=== PATIENT | female | born 1970 | race Caucasian/White ===

== ENCOUNTER 2023-07-16 17:41 | Emergency (ER) | payer OTHER, SELFPAY ==
[2023-07-16 17:42] VITALS: BP 154/101; PULSE 102; RESP 20; TEMP 36.6; O2SAT 95; BMI 36.9
--- NOTE | 2023-07-16 17:42 | XRR_ITS ---
PROCEDURE INFORMATION: Exam: XR Chest Exam date and time: 07/16/2023 5:52 PM Age: 52 years old Clinical indication: Pain; Chest pressure; Additional info: Cp TECHNIQUE: Imaging protocol: Radiologic exam of the chest. Views: 1 view. COMPARISON: No relevant prior studies available. FINDINGS: Lungs: Unremarkable. No consolidation. Pleural spaces: Unremarkable. No pleural effusion. No pneumothorax. Heart/Mediastinum: Unremarkable. No cardiomegaly. Bones/joints: Unremarkable. XR/XR chest 1V portable [id number] IMPRESSION: No acute findings.
--- NOTE | 2023-07-16 17:42 | ECG_ITS ---
[facility] Test Date: 2023-07-16 Pat Name: Claudette Womack Department: Room: Gender: Female Supervisor Grounds: : 1970 Requested By: Vandana Judge Order Number: [id number] Deep MD: Florentin Ibanez M.D. Measurements Intervals [place] Rate: 98 P: 48 IA: 148 QRS: -46 QRSD: 77 T: 52 QT: 320 QTc: 410 Interpretive Statements SINUS RHYTHM LEFT AXIS DEVIATION [QRS AXIS < -30] LOW QRS VOLTAGE IN PRECORDIAL LEADS [QRS DEFLECTION < 1.0 mV IN CHEST LEADS] PATTERN CONSISTENT WITH PULMONARY DISEASE POSSIBLE RIGHT VENTRICULAR CONDUCTION DELAY [RSR (QR) IN V1/V2] No previous ECG available for comparison Electronically Signed On 07-16-2023 23:08:28 CDT by Florentin Ibanez M.D. [email or web address] ([email or web address] by [employer] in 2014)/store/[id number] f
[2023-07-16 18:16] LABS: Basophils # 0.1 10^3/uL (0.0-0.1); Basophils % 1.1 %; Eosinophils # 0.4 10^3/uL (0.0-0.8); Eosinophils % 4.3 %; Hematocrit 50.2 % (36-47); Lymphocytes # 3.3 10^3/uL (0.8-4.8); Lymphocytes % 36.1 %; Mean Corpuscular HGB Conc 31.9 g/dL (30-55); Mean Corpuscular Hemoglobin 30.8 pg (27-33); Mean Corpuscular Volume 96.7 fl (85-98); Mean Platelet Volume 10.4 fL (7.4-10.4); Monocytes # 0.6 10^3/uL (0.2-0.9); Monocytes % 6.6 %; Neutrophils # 4.74 10^3/uL (1.8-7.7); Neutrophils % 51.6 %; Nucleated Red Blood Cells % 0 %; Platelet Count 250 10^3/cmm (157-399); Red Blood Count 5.19 10^6/uL (3.85-5.65); Red Cell Distribution Width 12.6 % (12.1-15.1)
[2023-07-16 18:38] LABS: Troponin(5th) Baseline < 6 ng/L (0-10)
[2023-07-16 18:55] LABS: Alanine Aminotransferase 34 U/L (0-33); Albumin Level 4.5 g/dL (3.5-5.2); Alkaline Phosphatase 117 U/L (35-105); Aspartate Amino Transferase 31 U/L (0-32); Blood Urea Nitrogen 19 mg/dL (6-20); Calcium 9.5 mg/dL (8.5-10.5); Carbon Dioxide 25 mmol/L (22-29); Chloride 103 mmol/L (98-107); Globulin 2.5 g/dL (1.3-4.6); Glucose 108 mg/dL (65-115); Lipase 36 U/L (13-60); Osmolality Calculated 295 mOsm/kg (285-295); Sodium 141 mmol/L (136-145); Total Bilirubin 0.2 mg/dL (0.15-1.2)
[2023-07-16 19:00] LABS: Anion Gap 17.6 (5-19); Potassium 4.6 mmol/L (3.5-5.1)
--- NOTE | 2023-07-16 19:15 | ED_ITS ---
HPI - Chest Pain General: Chief Complaint: Chest Pain Stated Complaint: chest pain Time Seen by Provider: 07/16/23 18:08 Source: patient Mode of arrival: ambulatory Limitations: no limitations History of Present Illness: 52-year-old female states she been having intermittent chest pains over the last 3 days states its been a pain that goes up and down her chest states seems to be worse with movement denies any vomiting she denies any shortness of breath denies any nausea or diaphoresis did have a history of a stent placed back in 2017. Associated symptoms: Deny abdominal pain, dyspnea, fever(s), nausea or vomiting Review of Systems Const: Denies: fever(s) or chills ENMT: Denies: throat pain or dental pain Card: Reports: chest pain Resp: Denies: dyspnea GI: Denies: abdominal pain, nausea, vomiting or diarrhea Musc: Denies: neck pain or back pain Skin/Breast: Denies: rash Neuro: Denies: headache(s) Physical Exam Const: COMMON NORMALS: no acute distress, patient oriented x3 and healthy appearing HENMT: COMMON NORMALS: normocephalic and atraumatic HEAD & SCALP: normocephalic and atraumatic Eye: COMMON NORMALS: Equal, round and reactive pupils present and EOMs intact bilaterally PUPIL: Yes Equal, round and reactive pupils present Neck/C-Spine: COMMON NORMALS: full ROM and supple Chest: COMMONS NORMALS: normal inspection of the chest and normal palpation of entire chest wall Resp: COMMON NORMALS: normal respiratory effort, No retractions, No use of accessory muscles and clear to auscultation bilaterally AUSCULTATION: clear to auscultation bilaterally Cardio: COMMON NORMALS: regular rate, regular rhythm and No murmurs present (Cardio) RATE: regular rate RHYTHM: regular rhythm GI: COMMON NORMALS: Normal to inspection, nondistended, normoactive bowel sounds present, Soft to palpation, non-tender and no masses PALPATION: Yes Soft to palpation Extremity: COMMON NORMALS: normal to inspection and full ROM Neuro: COMMON NORMALS: patient oriented x3, moves all extremities and no focal motor deficits Psych: COMMON NORMALS: mental status grossly normal, Normal thought process present and cooperative THOUGHT PROCESS: Normal thought process present Skin: COMMON NORMALS: no rashes or lesions noted and no wounds GENERAL SKIN EXAM: no rashes or lesions noted Course Vital Signs: Vital signs: Vital Signs Temperature 97.9 F 07/16/23 17:42 Pulse Rate 93 07/16/23 20:54 Respiratory Rate 16 07/16/23 20:54 Blood Pressure 134/86 07/16/23 20:54 Pulse Oximetry 95 07/16/23 20:54 Oxygen Delivery Me thod Room Air 07/16/23 19:17 MDM - Chest Pain Medical Decision Making Patient presents for chest pains atypical in nature initial and repeat troponin here are both negative EKGs are normal she is stable for discharge she had some nausea we will prescribe her Zofran we will get her follow-up with cardiology she is return if worsening. Medical Records I reviewed the patient's medical records. Lab Data I reviewed the patient's lab results. 07/16/23 18:11 07/16/23 18:11 Radiology Impressions Chest X-Ray 07/16/23 17:42 IMPRESSION: No acute findings. Laboratory Results WBC 9.20 10^3/uL (3.29-11.43) 07/16/23 18:11 RBC 5.19 10^6/uL (3.85-5.65) 07/16/23 18:11 Hgb 16.00 g/dL (11.27-16.99) 07/16/23 18:11 Hct 50.2 % (36-47) H 07/16/23 18:11 MCV 96.7 fl (85-98) 07/16/23 18:11 MCH 30.8 pg (27-33) 07/16/23 18:11 MCHC 31.9 g/dL (30-55) 07/16/23 18:11 RDW 12.6 % (12.1-15.1) 07/16/23 18:11 Plt Count 250 10^3/cmm (157-399) 07/16/23 18:11 MPV 10.4 fL (7.4-10.4) 07/16/23 18:11 Neut % (Auto) 51.6 % 07/16/23 18:11 Lymph % (Auto) 36.1 % 07/16/23 18:11 S[place]ent % (Auto) 6.6 % 07/16/23 18:11 Eos % (Auto) 4.3 % 07/16/23 18:11 Baso % (Auto) 1.1 % 07/16/23 18:11 Neut # (Auto) 4.74 10^3/uL (1.8-7.7) 07/16/23 18:11 Lymph # (Auto) 3.3 10^3/uL (0.8-4.8) 07/16/23 18:11 [place]ent # (Auto) 0.6 10^3/uL (0.2-0.9) 07/16/23 18:11 Eos # (Auto) 0.4 10^3/uL (0.0-0.8) 07/16/23 18:11 Baso # (Auto) 0.1 10^3/uL (0.0-0.1) 07/16/23 18:11 Nucleated RBC % (auto) 0 % 07/16/23 18:11 Nucleated RBCs # 0.0 /100WBC 07/16/23 18:11 Sodium 141 mmol/L (136-145) 07/16/23 18:11 Potassium 4.6 mmol/L (3.5-5.1) 07/16/23 18:11 Chloride 103 mmol/L (98-107) 07/16/23 18:11 Carbon Dioxide 25 mmol/L (22-29) 07/16/23 18:11 Anion Gap 17.6 (5-19) 07/16/23 18:11 BUN 19 mg/dL (6-20) 07/16/23 18:11 Creatinine 0.9 mg/dL (0.5-0.9) 07/16/23 18:11 GFR Calculation 66.0 mL/min (90-130) L 07/16/23 18:11 Glucose 108 mg/dL (65-115) 07/16/23 18:11 Calculated Osmolality 295 mOsm/kg (285-295) 07/16/23 18:11 Calcium 9.5 mg/dL (8.5-10.5) 07/16/23 18:11 Total Bilirubin 0.2 mg/dL (0.15-1.2) 07/16/23 18:11 AST 31 U/L (0-32) 07/16/23 18:11 ALT 34 U/L (0-33) H 07/16/23 18:11 Alkaline Phosphatase 117 U/L (35-105) H 07/16/23 18:11 Troponin T Baseline < 6 ng/L (0-10) 07/16/23 18:11 Troponin T 120 Minute 6.0 ng/L (0-10) 07/16/23 19:59 Delta Troponin T 0.84041 ABS# (0-10) 07/16/23 19:59 Total Protein 7.0 g/dL (6.6-8.7) 07/16/23 18:11 Albumin 4.5 g/dL (3.5-5.2) 07/16/23 18:11 Globulin 2.5 g/dL (1.3-4.6) 07/16/23 18:11 Lipase 36 U/L (13-60) 07/16/23 18:11 All radiology interpretation(s) finalized by discharge EKG Data EKG 1: I personally reviewed and interpreted this EKG as follows: EKG interpretation date: 07/16/23 EKG interpretation time: 17:47 Interpretation: nsr hr [address] or t wave abnormalities qrs 77 qtc 376 Discharge Plan Discharge Patient Disposition: Home Clinical Impression: Chest pain Condition: Stable Prescriptions: New ondansetron 4 mg tablet,disintegrating 4 mg PO Q6H PRN (Reason: nausea and vomiting) Qty: 14 0RF Discharge Orders: Discharge ED (Routine); Ordered 07/16/23 Ordered By: Vandana Judge Referrals: Stefan Nicholas MD [Physician] - 1-3 days Discharge Diet: Advance as tolerated Discharge Activity: Resume usual activity Patient Instructions: Chest Pain (ED) Coding Level of Care Code ED Gas Usage Meter Clerk for Chg Katina
[2023-07-16 19:17] VITALS: BP 146/87; PULSE 88; RESP 16; O2SAT 94; O2SAT 95
[2023-07-16] MEDS: aspirin 81 mg Chew Tablet 324 MG PO (19:24)
--- NOTE | 2023-07-16 19:53 | ECG_ITS ---
[facility] Test Date: 2023-07-16 Pat Name: Claudette Womack Department: Room: Gender: Female Manager Supplier: : 1970 Requested By: Vandana Judge Order Number: [id number] Deep MD: Florentin Ibanez M.D. Measurements Intervals [place] Rate: 78 P: 33 NV: 148 QRS: -37 QRSD: 92 T: 53 QT: 374 QTc: 427 Interpretive Statements SINUS RHYTHM WITH SINUS ARRHYTHMIA LEFT AXIS DEVIATION [QRS AXIS < -30] LOW QRS VOLTAGE IN PRECORDIAL LEADS [QRS DEFLECTION < 1.0 mV IN CHEST LEADS] PATTERN CONSISTENT WITH PULMONARY DISEASE INCOMPLETE RIGHT BUNDLE BRANCH BLOCK [90+ ms QRS DURATION, TERMINAL R IN V1/V2, 40+ ms S IN I/aVL/V4/V5/V6] No previous ECG available for comparison Electronically Signed On 07-16-2023 23:09:22 CDT by Florentin Ibanez M.D. [email or web address] [email or web address].Rebel Monkey/store/OM/[id number]
[2023-07-16 20:20] VITALS: BP 123/91; PULSE 85; RESP 20; O2SAT 95
[2023-07-16 20:30] LABS: Troponin 5 2HR Delta 0.00001 ABS# (0-10)
[2023-07-16] MEDS: HYDROcodone-acetaminophen 5-325 mg Tablet 1 TAB PO (20:48)
[2023-07-16 20:54] VITALS: BP 134/86; PULSE 93; RESP 16; O2SAT 95
--- NOTE | 2023-07-17 08:14 | PC.SOCIAL ---
Cardiology Referral Referral to clinic at this time. Clinic to contact patient with appt date/time.
== END 2023-07-16 20:55 | disposition home or self-care (01) ==
PROVIDERS: Emergency Provider Emergency Medicine
DX: R07.9 Chest pain, unspecified (principal)
CPT/HCPCS: 36415; 71045; 80053; 83690; 84484; 85025; 93005; 99285

== ENCOUNTER 2023-07-27 16:46 | Emergency (ER) | payer OTHER, SELFPAY ==
--- NOTE | 2023-07-27 16:52 | ECG_ITS ---
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 Measurements Intervals [place] Rate: 118 P: 7 WY: 116 QRS: -50 QRSD: 84 T: 44 QT: 305 QTc: 429 Interpretive Statements SINUS TACHYCARDIA WITH SHORT WY INTERVAL PATTERN CONSISTENT WITH PULMONARY DISEASE POSSIBLE RIGHT VENTRICULAR CONDUCTION DELAY [RSR (QR) IN V1/V2] LEFT ANTERIOR FASCICULAR BLOCK [QRS AXIS <= -45, QR IN I, RS IN II] Compared to ECG 07/16/2023 19:53:02 Short [place] interval now present Left anterior fascicular block now present Sinus rhythm no longer present Sinus arrhythmia no longer present Left-axis deviation no longer present Incomplete right bundle-branch block no longer present Electronically Signed On 07-28-2023 6:04:53 CDT by Latasha Hodges M.D. [id number]
[2023-07-27 16:53] VITALS: BP 156/105; PULSE 112; RESP 18; TEMP 36.9; O2SAT 94; BMI 34.9
--- NOTE | 2023-07-27 17:24 | XRR_ITS ---
PROCEDURE INFORMATION: Exam: XR Chest Exam date and time: 07/27/2023 8:58 PM Age: 52 years old Clinical indication: Chest pressure; Prior surgery; Surgery date: 6+ months; Patient HX: Chest pain; HX mi & cardiac stents; Smoker TECHNIQUE: Imaging protocol: Radiologic exam of the chest. Views: 1 view. COMPARISON: CR (CHEST, ) 07/16/2023 5:52 PM FINDINGS: Lungs: Unremarkable. No consolidation. Pleural spaces: Unremarkable. No pleural effusion. No pneumothorax. Heart/Mediastinum: Unremarkable. No cardiomegaly. Bones/joints: Unremarkable. XR/XR chest 1V portable [id number] IMPRESSION: No acute findings.
[2023-07-27 17:47] LABS: Basophils # 0.1 10^3/uL (0.0-0.1); Basophils % 0.9 %; Eosinophils # 0.4 10^3/uL (0.0-0.8); Eosinophils % 3.5 %; Lymphocytes # 3.8 10^3/uL (0.8-4.8); Lymphocytes % 32.4 %; Mean Corpuscular HGB Conc 32.9 g/dL (30-55); Mean Corpuscular Hemoglobin 30.7 pg (27-33); Mean Corpuscular Volume 93.4 fl (85-98); Mean Platelet Volume 9.6 fL (7.4-10.4); Monocytes # 0.8 10^3/uL (0.2-0.9); Monocytes % 6.4 %; Neutrophils # 6.59 10^3/uL (1.8-7.7); Neutrophils % 56.5 %; Nucleated Red Blood Cells % 0 %; Platelet Count 266 10^3/cmm (157-399); Red Blood Count 5.14 10^6/uL (3.85-5.65); Red Cell Distribution Width 12.7 % (12.1-15.1); White Blood Count 11.67 10^3/uL (3.29-11.43)
[2023-07-27 18:10] LABS: Troponin(5th) Baseline < 6 ng/L (0-10)
[2023-07-27 18:16] LABS: Alanine Aminotransferase 23 U/L (0-33); Albumin Level 4.4 g/dL (3.5-5.2); Alkaline Phosphatase 121 U/L (35-105); Aspartate Amino Transferase 20 U/L (0-32); Blood Urea Nitrogen 15 mg/dL (6-20); Calcium 9.7 mg/dL (8.5-10.5); Carbon Dioxide 25 mmol/L (22-29); Chloride 101 mmol/L (98-107); Globulin 2.8 g/dL (1.3-4.6); Glucose 114 mg/dL (65-115); Osmolality Calculated 286 mOsm/kg (285-295); Sodium 137 mmol/L (136-145); Total Bilirubin 0.2 mg/dL (0.15-1.2); Total Protein 7.2 g/dL (6.6-8.7)
[2023-07-27 18:17] LABS: Anion Gap 15.8 (5-19); Potassium 4.8 mmol/L (3.5-5.1)
[2023-07-27 20:40] LABS: Troponin 5 2HR < 6.0 ng/L (0-10); Troponin 5 2HR Delta 0 ABS# (0-10)
[2023-07-27 21:03] VITALS: BP 129/87; PULSE 118; RESP 18; O2SAT 96
--- NOTE | 2023-07-27 21:03 | ECG_ITS ---
[facility] Test Date: 2023-07-27 Pat Name: Claudette Womack Department: Room: Gender: Female Environmental Compliance Manager: : 1970 Requested By: Shaun Garcia Order Number: [id number] Deep MD: Latasha Hodges M.D. Measurements Intervals [place] Rate: 116 P: 69 CO: 137 QRS: 20 QRSD: 76 T: 53 QT: 306 QTc: 426 Interpretive Statements SINUS TACHYCARDIA POSSIBLE LEFT ATRIAL ENLARGEMENT [-0.1mV P-WAVE IN V1/V2] INDETERMINATE AXIS POSSIBLE RIGHT VENTRICULAR CONDUCTION DELAY [RSR (QR) IN V1/V2] ABNORMAL RHYTHM ECG Compared to ECG 07/27/2023 16:52:16 Indeterminate axis now present Short [place] interval no longer present Left anterior fascicular block no longer present Electronically Signed On 07-29-2023 10:51:30 CDT by Latasha Hodges M.D. [email or web address] [email or web address]/[id number]
[2023-07-27 22:22] VITALS: BP 141/92; PULSE 106; RESP 16; O2SAT 96
--- NOTE | 2023-07-27 22:34 | PC.NURSE ---
Upon repeat ekg and vitals done at 2102 when pt was asked about pain; the only pain the pt endorsed was a headache.
[2023-07-27 22:47] LABS: D Dimer 0.45 ug/mLFEU (0-0.59)
[2023-07-27 22:55] VITALS: RESP 18
[2023-07-27] MEDS: fentaNYL 50 mcg/mL INJ 2mL IVP (22:55)
[2023-07-27] MEDS: ondansetron 2 mg/ML SDV 2 mL 4 MG IVP (22:55)
[2023-07-27] MEDS: ketorolac 30 mg/mL INJ IVP (22:56)
[2023-07-27 22:59] VITALS: BP 150/89; PULSE 98; RESP 25; O2SAT 98
--- NOTE | 2023-07-27 23:43 | ECG_ITS ---
[facility] Test Date: 2023-07-27 Pat Name: Claudette Womack Department: Room: Gender: Female Interactive Media Designer: : 1970 Requested By: Shaun Garcia Order Number: [id number] Deep MD: Latasha Hodges M.D. Measurements Intervals [place] Rate: 80 P: 59 [place]: 150 QRS: -28 QRSD: 92 T: 54 QT: 366 QTc: 425 Interpretive Statements SINUS RHYTHM INCOMPLETE RIGHT BUNDLE BRANCH BLOCK [90+ ms QRS DURATION, TERMINAL R IN V1/V2, 40+ ms S IN I/aVL/V4/V5/V6] SEPTAL MYOCARDIAL INFARCTION , OF INDETERMINATE AGE [40+ ms Q WAVE IN V1/V2] Compared to ECG 07/27/2023 21:03:09 Incomplete right bundle-branch block now present Myocardial infarct finding now present Sinus tachycardia no longer present Indeterminate axis no longer present Electronically Signed On 07-29-2023 10:50:37 CDT by Latasha Hodges M.D. [email or web address] Power.[place] [facility] Learningm[facility].Vital Access/store/[id number]
--- NOTE | 2023-07-27 23:58 | W.ED.CHESTPA ---
HPI - Chest Pain General: Chief Complaint: Chest Pain Stated Complaint: Chest pain SOB Time Seen by Provider: 07/27/23 22:06 History of Present Illness: 52-year-old female with a history of coronary disease. She had a stent placed in 2017. She presents here with chest discomfort on and off. She describes it as a squeezing sensation in her left upper chest near her shoulder, with radiation into her arm. She is also been short of breath and fatigued the last couple of days. She has a headache today. Blood pressures have been high, particularly diastolic blood pressures. She usually does not have problems with high blood pressure. Her blood pressure is improved currently after treatment of her pain. Blood pressure now is 119/79 with a heart rate of 88. She notes her heart rate is usually fast. She saw cardiology recently, with similar complaints, and has a scheduled stress test for Saturday. Associated symptoms: Reports dyspnea, nausea and palpitations; Deny abdominal pain, fever(s) or vomiting Review of Systems Const: Denies: fever(s) Card: Reports: chest pain and palpitations Resp: Reports: dyspnea; Denies: productive cough or non-productive cough GI: Reports: nausea; Denies: abdominal pain or vomiting Neuro: Reports: headache(s) Psych: Reports: anxiety PFSH ED PFSH: Medical History CAD (coronary artery disease) Physical Exam Const: COMMON NORMALS: no acute distress GENERAL APPEARANCE: cooperative; not ill appearing and not frail appearing HENMT: COMMON NORMALS: normocephalic, atraumatic and Normal external nose present HEAD & SCALP: normocephalic and atraumatic FACE & SINUS: normal facial exam and face symmetric NOSE: Normal external nose present Eye: COMMON NORMALS: Equal, round and reactive pupils present and EOMs intact bilaterally PUPIL: Yes Equal, round and reactive pupils present Neck/C-Spine: GENERAL: Yes trachea midline Chest: CHEST: Yes Symmetrical chest wall rise Resp: COMMON NORMALS: normal respiratory effort, No retractions, No use of accessory muscles and clear to auscultation bilaterally AUSCULTATION: clear to auscultation bilaterally Cardio: COMMON NORMALS: regular rate and regular rhythm RATE: regular rate RHYTHM: regular rhythm GI: COMMON NORMALS: Normal to inspection, nondistended, normoactive bowel sounds present Extremity: COMMON NORMALS: no pedal edema Neuro: WILFREDO COMA SCALE: document GCS findings Wilfredo coma scale eye opening: Spontaneous Wilfredo coma scale verbal response: Orientated [place] coma scale motor response: Obey commands Wilfredo coma scale total score: 15 SENSORY EXAM: Yes extremities (intact) Psych: COMMON NORMALS: speech normal SPEECH: Yes normal speech Skin: COMMON NORMALS: no rashes or lesions noted GENERAL SKIN EXAM: no rashes or lesions noted Course Vital Signs: Vital signs: Vital Signs Temperature 98.4 F 07/27/23 16:53 Pulse Rate 70 07/28/23 00:16 Respiratory Rate 25 H 07/27/23 22:59 Blood Pressure 124/85 07/28/23 00:16 Pulse Oximetry 98 07/28/23 00:16 Oxygen Delivery Me thod Room Air 07/27/23 22:59 MDM - Chest Pain Medical Decision Making This patient has a stress test scheduled as an outpatient 48 hours. She is symptom-free now after medication. Her white blood cell count is 11.6. BMP is normal. Chest x-ray is normal. She has 2 nondetectable troponins. She has a normal D-dimer. Other laboratory is not remarkable. With control of her blood pressure currently, she will be prescribed as needed blood pressure Medication, allowed to have her stress test on Saturday as an outpatient, and follow-up with cardiology. She will continue to monitor blood pressures. Lab Data 07/27/23 17:38 07/27/23 17:38 Radiology Impressions Chest X-Ray 07/27/23 17:24 IMPRESSION: No acute findings. Laboratory Results WBC 11.67 10^3/uL (3.29-11.43) H 07/27/23 17:38 RBC 5.14 10^6/uL (3.85-5.65) 07/27/23 17:38 Hgb 15.80 g/dL (11.27-16.99) 07/27/23 17:38 Hct 48.0 % (36-47) H 07/27/23 17:38 MCV 93.4 fl (85-98) 07/27/23 17:38 MCH 30.7 pg (27-33) 07/27/23 17:38 MCHC 32.9 g/dL (30-55) 07/27/23 17:38 RDW 12.7 % (12.1-15.1) 07/27/23 17:38 Plt Count 266 10^3/cmm (157-399) 07/27/23 17:38 MPV 9.6 fL (7.4-10.4) 07/27/23 17:38 Neut % (Auto) 56.5 % 07/27/23 17:38 Lymph % (Auto) 32.4 % 07/27/23 17:38 [place] % (Auto) 6.4 % 07/27/23 17:38 Eos % (Auto) 3.5 % 07/27/23 17:38 Baso % (Auto) 0.9 % 07/27/23 17:38 Neut # (Auto) 6.59 10^3/uL (1.8-7.7) 07/27/23 17:38 Lymph # (Auto) 3.8 10^3/uL (0.8-4.8) 07/27/23 17:38 [place] # (Auto) 0.8 10^3/uL (0.2-0.9) 07/27/23 17:38 Eos # (Auto) 0.4 10^3/uL (0.0-0.8) 07/27/23 17:38 Baso # (Auto) 0.1 10^3/uL (0.0-0.1) 07/27/23 17:38 Nucleated RBC % (auto) 0 % 07/27/23 17:38 Nucleated RBCs # 0.0 /100WBC 07/27/23 17:38 D-Dimer 0.45 ug/mLFEU (0-0.59) 07/27/23 17:38 Sodium 137 mmol/L (136-145) 07/27/23 17:38 Potassium 4.8 mmol/L (3.5-5.1) 07/27/23 17:38 Chloride 101 mmol/L (98-107) 07/27/23 17:38 Carbon Dioxide 25 mmol/L (22-29) 07/27/23 17:38 Anion Gap 15.8 (5-19) 07/27/23 17:38 BUN 15 mg/dL (6-20) 07/27/23 17:38 Creatinine 0.9 mg/dL (0.5-0.9) 07/27/23 17:38 GFR Calculation 66.0 mL/min (90-130) L 07/27/23 17:38 Glucose 114 mg/dL (65-115) 07/27/23 17:38 Calculated Osmolality 286 mOsm/kg (285-295) 07/27/23 17:38 Calcium 9.7 mg/dL (8.5-10.5) 07/27/23 17:38 Total Bilirubin 0.2 mg/dL (0.15-1.2) 07/27/23 17:38 AST 20 U/L (0-32) 07/27/23 17:38 ALT 23 U/L (0-33) 07/27/23 17:38 Alkaline Phosphatase 121 U/L (35-105) H 07/27/23 17:38 Troponin T Baseline < 6 ng/L (0-10) 07/27/23 17:38 Troponin T 120 Minute < 6.0 ng/L (0-10) 07/27/23 20:09 Delta Troponin T 0 ABS# (0-10) 07/27/23 20:09 Total Protein 7.2 g/dL (6.6-8.7) 07/27/23 17:38 Albumin 4.4 g/dL (3.5-5.2) 07/27/23 17:38 Globulin 2.8 g/dL (1.3-4.6) 07/27/23 17:38 All radiology interpretation(s) finalized by discharge Discharge Plan Discharge Patient Disposition: Home Clinical Impression: Chest pain, Hypertension Condition: Stable Prescriptions: New amlodipine 5 mg tablet 5 mg PO DAILY Qty: 30 0RF No Action rosuvastatin 20 mg tablet 20 mg PO DAILY Qty: 90 3RF metoprolol tartrate 25 mg tablet 12.5 mg PO BID Qty: 90 3RF aspirin 81 mg tablet,delayed release (DR/EC) 81 mg PO DAILY Qty: 90 3RF Discharge Orders: Discharge ED (Routine); Ordered 07/28/23 Ordered By: Lopez Melvin Patient Instructions: Chest Pain (ED), Hypertension (ED), Opioid Safety, Pain Management Activity Restrictions/Additional Instructions: Continue to monitor your blood pressures. Take blood pressures at least twice daily. Report numbers to your physician. For sustained blood pressure greater than 150/100, take the medication you were prescribed this evening. You do not have to take the medication if blood pressure is not high. Proceed with your stress test on Saturday morning. Return for return of or worsening symptoms prior to that time. Coding Level of Care Code ED Ceramic Engineering Professor for Kimberli Ambriz
[2023-07-28 00:16] VITALS: BP 124/85; PULSE 70; O2SAT 98
== END 2023-07-28 00:19 | disposition home or self-care (01) ==
PROVIDERS: Emergency Medicine; Emergency Provider Emergency Medicine
DX: R07.9 Chest pain, unspecified (principal); I10 Essential (primary) hypertension; Z79.82 Long term (current) use of aspirin; I25.10 Atherosclerotic heart disease of native coronary artery without angina pectoris
CPT/HCPCS: 36415; 71045; 80053; 84484; 85025; 85378; 93005; 96374; 96375; 99285; J1885; J2405; J3010

== ENCOUNTER 2023-07-29 09:08 | Outpatient (CLI) | payer OTHER, SELFPAY ==
--- NOTE | 2023-07-29 | ECG_ITS ---
[facility] Test Date: 2023-07-29 Pat Name: Claudette Womack Department: Room: Gender: Female Distributor Sales Consultant: Sue Minfus : 1970 Requested By: Florentin Ibanez Order Number: [id number] Deep MD: Florentin Ibanez M.D. Interpretive Statements NAME OF STUDY: LEXISCAN SESTAMIBI STRESS TEST INDICATION: [Chest Pain, ] Procedure: At the baseline, the blood pressure was 116/89 mmHg with a heart rate of 87 bpm. The electrocardiogram showed normal sinus rhythm, normal axis with normal ST and T's. The Lexiscan was infused over a period of 20 seconds. A total of 0.4 mg of Lexiscan was infused. The stress phase was continued for a total of 5 minutes. Heart rate was at the end of stress phase was 103bpm and a blood pressure of 115/63 mmHg. The EKG at the peak infusion revealed normal sinus rhythm with no significant ST-T wave changes. Sestamibi was injected 20 seconds after the Lexiscan infusion. Blood pressure at the end of recovery phase was 110/65 mmHg with a heart rate of 99 bpm. Conclusion: 1. Normal EKG response to Lexiscan infusion 2. No Lexiscan induced chest pain or cardiac arrhythmia. 3. Normal blood pressure and heart rate response. 4. Sestamibi/sestamibi perfusion scan pending; see separate report. Electronically Signed On 08-01-2023 12:45:21 CDT by Florentin Ibanez M.D. [email or web address].[email or web address] stokes [facility].COINTERRA/store/OM/[id number]
[2023-07-29 09:43] VITALS: BMI 34.9
--- NOTE | 2023-07-29 09:47 | NMCV_ITS ---
NM brionna perf SPECT r/s* [id number] Claudette Womack Age: 52 Gender: F : 1970 Exam Date: 07/29/2023 11:20 Ordering Phys: Florentin Ibanez M.D ([email or web address]) Technologist: KHAI Lara Exam Location: [facility] Indications: CHEST PAIN STRESS TEST Please see separate stress test report in [facility] for full findings IMAGE PROTOCOL Rest/Stress 1 Lexiscan Day Radiopharmaceutical Dose (mCi) Administration Site Administered by Rest: Tc-99m 8.9 IV KHAI Lara Sestamibi Stress:Tc-99m 27.7 IV KHAI Lara Sestamibi Rest: 29-Jul-2023 60 Discovery 630 Stress: 29-Jul-2023 30 Discovery 630 0.4mg Lexiscan. Images obtained in supine and prone position. SPECT RESULTS Technical Quality: Excellent Raw Data Analysis: Breast attenuation Image Corrections: No attenuation or motion correction applied Summed Stress Score: 7 Summed Rest Score: 0 Summed Difference Score: 7 PERFUSION FINDINGS There is a medium sized area of mostly reversible perfusion defect noted in the apical, apical lateral and apical septal sanchez. This is consistent with medium sized area of ischemia in the LAD territory. Attenuation artifact can not be ruled out FUNCTIONAL RESULTS (calculated via Gated SPECT) Stress Image LV EF (%): 87 Stress EDV (mL):76 TID: 0.93 Stress ESV (mL):10 FUNCTIONAL FINDINGS: There is normal left ventricular systolic function. IMPRESSIONS 1. Abnormal myocardial perfusion imaging with medium sized area of ischemia noted in the LAD territory. Attenuation artifact can not be completely excluded. 2. LV systolic function is normal. Florentin Ibanez MD (Electronically Signed) Final Date: 29 July 2023 14:22 S
[2023-07-29] MEDS: regadenoson 0.4 Mg/5 ml Syringe IVP (12:06)
[2023-07-29 12:23] VITALS: BP 110/65; PULSE 97
== END 2023-07-29 09:09 | disposition home or self-care (01) ==
LOC: CDL 09:09
PROVIDERS: PCP Internal Medicine; Visit Provider Internal Medicine
DX: R07.9 Chest pain, unspecified (principal)
CPT/HCPCS: 36415; 78452; 93017; 96374; A9500; J2785

== ENCOUNTER 2023-08-05 12:49 | Outpatient (CLI) | payer OTHER, SELFPAY ==
--- NOTE | 2023-08-05 13:45 | USCV_ITS ---
Claudette Womack Age: 52 Gender: F : 1970 Exam Date: 08/05/2023 13:27 Ordering Phys: Florentin Ibanez M.D ([email or web address]) Technologist: Exam Location: [facility] Indication: SOB, CP BP: / HR: 86 Rhythm: Sinus Technical Quality: Adequate MEASUREMENTS (Male / Female) Normal Values 2D ECHO LV Diastolic Diameter PLAX 4.4 cm 4.2 - 5.9 / 3.9 - 5.3 cm LV Systolic Diameter PLAX 2.9 cm IVS Diastolic Thickness 1.3 cm 0.6 - 1.0 / 0.6 - 0.9 cm IVS Systolic Thickness 1.6 cm LVPW Diastolic Thickness 1.1 cm 0.6 - 1.0 / 0.6 - 0.9 cm LVPW Systolic Thickness 1.7 cm LVOT Diameter 2.0 cm LV Ejection Fraction 2D Teich 65.0 % LV Ejection Fraction MOD 2C 78.4 % LV Ejection Fraction 2C AL 78.6 % LA Diameter 3.7 cm M-MODE Aortic Annulus Diameter 3.1 cm LA Ao Ratio MM 1.2 MV E Point Septal Separation 1.3 cm DOPPLER AV Peak Velocity 109.0 cm/s LVOT Peak Velocity 101.0 cm/s AV Area Cont Eq vti 4.3 cm squared AV Area Cont Eq pk 3.0 cm squared MV Area PHT 3.1 cm squared Mitral E to A Ratio 0.8 MV E' Velocity 32.5 cm/s Mitral E to MV E' Ratio 8.8 Mitral E to LV E' Lateral Ratio 9.1 Mitral E to LV E' Septal Ratio 8.6 TR Peak Velocity 98.0 cm/s TR Peak Gradient 3.8 mmHg Right Atrial Pressure 3.0 mmHg Pulmonary Artery Systolic Pressu 6.8 mmHg RV Acceleration Time 0.2 s FINDINGS Left Ventricle Left ventricle is normal in size. LV systolic function is normal with EF 55 to 60%. No regional wall motion abnormalities are seen. Grade 1 diastolic dysfunction Right Ventricle Normal in size and function Right Atrium Normal in size Left Atrium Normal in size Mitral Valve Structurally normal mitral valve. Trace mitral regurgitation. Aortic Valve Structurally normal aortic valve. No significant stenosis or regurgitation seen. Tricuspid Valve Mild tricuspid regurgitation. Insufficient TR jet to calculate RVSP. Not well-visualized normal Pulmonic Valve Not well visualized Pericardium Normal Aorta Normal in size IVC Appears to be normal CONCLUSIONS LV systolic function is normal with EF of 55-60% Grade 1 diastolic dysfunction Trace mitral regurgitation Mild tricuspid regurgitation No comparison studies are available. Florentin Ibanez MD (Electronically Signed) Final Date: 06 August 2023 13:58 S
== END 2023-08-05 12:50 | disposition home or self-care (01) ==
LOC: RAD 12:49
PROVIDERS: PCP Internal Medicine; Visit Provider Internal Medicine
DX: R07.9 Chest pain, unspecified (principal); R06.02 Shortness of breath; I07.1 Rheumatic tricuspid insufficiency
CPT/HCPCS: 93306

== ENCOUNTER 2023-08-08 10:19 | Emergency (ER) | payer OTHER, SELFPAY ==
[2023-08-08 10:24] VITALS: BP 163/110; PULSE 115; RESP 16; TEMP 36.8; O2SAT 95; BMI 34.9
--- NOTE | 2023-08-08 10:41 | W.ED.WOUNDLC ---
HPI - Wound/Laceration General: Chief Complaint: Wound/Laceration Stated Complaint: left wrist lac (small) Time Seen by Provider: 08/08/23 10:24 History of Present Illness: 52-year-old female presents emerged part with complaints of an accidental laceration to the medial ventral side of her left wrist proximal she states she was attempting to pry a piece of glue off of the [place] decoration when the steak knife slipped causing her to accidentally cut a small area of 1 cm and 0.25 mm depth. The bleeding is well controlled. She states she denies numbness or tingling to the extremity. She denies suicidal ideation or homicidal ideation. Review of Systems General: Reports: 10 or more systems reviewed and unremarkable except in HPI and below Skin/Breast: Reports: other (Superficial laceration left wrist) [facility] ED PFSH: Medical History CAD (coronary artery disease) Physical Exam Const: COMMON NORMALS: no acute distress, patient oriented x3 and alert HENMT: COMMON NORMALS: normocephalic and atraumatic HEAD & SCALP: normocephalic and atraumatic Eye: COMMON NORMALS: Equal, round and reactive pupils present and conjunctivae normal CONJUNCTIVA: Yes conjunctivae normal PUPIL: Yes Equal, round and reactive pupils present Neck/C-Spine: COMMON NORMALS: full ROM, no lymphadenopathy and supple Resp: COMMON NORMALS: normal respiratory effort and clear to auscultation bilaterally AUSCULTATION: clear to auscultation bilaterally Cardio: COMMON NORMALS: regular rate, regular rhythm, S1 normal heart sound present, S2 normal heart sound present and Peripheral pulses 2+ throughout RATE: regular rate RHYTHM: regular rhythm HEART SOUNDS: S1 normal heart sound present and S2 normal heart sound present PERIPHERAL PULSES: Peripheral pulses 2+ throughout GI: COMMON NORMALS: Normal to inspection, nondistended, normoactive bowel sounds present, Soft to palpation and non-tender PALPATION: Yes Soft to palpation : COMMON NORMALS: Yes no CVA tenderness BLADDER/KIDNEY EXAM: Yes no CVA tenderness Back/Pelvis: COMMON NORMALS: no CVA tenderness and thoracic and lumbar spine normal to inspection Extremity: LEFT UPPER EXTREMITY: Yes lower arm (1 cm laceration by 0.25 mm depth) Neuro: COMMON NORMALS: patient oriented x3, moves all extremities and no focal motor deficits SENSORIUM/ORIENTATION: Yes alert Psych: COMMON NORMALS: mental status grossly normal, Normal thought process present and cooperative THOUGHT PROCESS: Normal thought process present Skin: COMMON NORMALS: no rashes or lesions noted; negative for no wounds (Laceration as noted under extremities) GENERAL SKIN EXAM: no rashes or lesions noted Course Vital Signs: Vital signs: Vital Signs Temperature 98.2 F 08/08/23 10:24 Pulse Rate 115 H 08/08/23 10:24 Respiratory Rate 16 08/08/23 10:24 Blood Pressure 163/110 08/08/23 10:24 Pulse Oximetry 95 08/08/23 10:24 Oxygen Delivery Me thod Room Air 08/08/23 10:24 MDM - Wound/Laceration Medical Decision Making Physical exam completed and documented, we will provide the patient an updated tetanus shot. We have provided her wound cleansing as well as Dermabond adhesive to close her superficial puncture wound. No radiology studies performed this visit Discharge Plan Discharge Patient Disposition: Home Clinical Impression: Laceration Condition: Stable Prescriptions: No Action rosuvastatin 20 mg tablet 20 mg PO DAILY Qty: 90 3RF metoprolol tartrate 25 mg tablet 12.5 mg PO BID Qty: 90 3RF aspirin 81 mg tablet,delayed release (DR/EC) 81 mg PO DAILY Qty: 90 3RF amlodipine 5 mg tablet 5 mg PO DAILY Qty: 30 0RF Discharge Orders: Discharge ED (Routine); Ordered 08/08/23 Ordered By: Bari Chou Referrals: Jamil Adams MD [Primary Care Provider] - Discharge Diet: Advance as tolerated Discharge Activity: Resume usual activity Coding Level of Care Code ED Form Tamper Operator for Kimberli Ambriz
--- NOTE | 2023-08-08 10:48 | PC.PHAR ---
MEDICATIONS ENTERED ARE WHAT SHOWS ON EXT MED HISTORY EXCEPT FOR 81MG ASPIRIN DAILY WRITTEN 07/23/23
[2023-08-08] MEDS: tetanus-dipt-pertussis 0.5 mL SDV IM (11:07)
[2023-08-08 11:10] VITALS: BP 163/110; PULSE 115; RESP 16; TEMP 36.8; O2SAT 95
== END 2023-08-08 11:11 | disposition home or self-care (01) ==
PROVIDERS: Emergency Provider Internal Medicine; PCP Internal Medicine
DX: S61.512A Laceration without foreign body of left wrist, initial encounter (principal); W26.0XXA Contact with knife, initial encounter; I25.10 Atherosclerotic heart disease of native coronary artery without angina pectoris; Z79.82 Long term (current) use of aspirin; Z23 Encounter for immunization
CPT/HCPCS: 12001; 90471; 90715; 99283

== ENCOUNTER 2023-08-12 13:33 | Day surgery (SDC) | payer OTHER, SELFPAY ==
[2023-08-12] VITALS (18 sets, daily range): BP systolic 98–144; BP diastolic 67–96; PULSE 79–95; RESP 13–23; TEMP 36.8; O2SAT 92–98; BMI 34.9
--- NOTE | 2023-08-12 06:00 | XACV_ITS ---
Exam Room: 2 Ht: 175 cm Wt: 108 kg BSA: 2.33 m2 Gender: Female : 1970 Any Known Allergies: Other Exam Priority: Routine Procedure(s): Procedure Description: Diagnostic procedure Procedure Description: Left Heart Catheterization Procedure Description: Left ventriculography Procedure Description: Coronary Angiography Procedure Description: Pressure Wire Diagnostic Cath Status: Elective Diagnostic Findings * INDICATION: Worsening angina/abnormal stress test. * Left Main has minimal luminal irregularities. * Left Anterior Descending has mild luminal irregularities. * Mid Right Coronary Artery: moderate 50% stenosis, ANNA: 3 flow. * Distal Circumflex: mild 40% stenosis, ANNA: 3 flow. * Coronary angiography shows right dominance. Interventional Findings * Procedure detail: After diagnostic coronary angiogram, we proceeded with IFR of mid RCA. We engaged RCA with JR4 guide catheter. IV heparin was administered to maintain anticoagulation. IFR wire was advanced into distal vessel after normalization. iFR value of 0.96 was obtained. As this was nonischemic, we decided to medically treat. iFR wire and guide catheter were removed. Patient left the Electrical Maintenance Supervisor in a stable condition.. Conclusions 1. Moderate mid RCA stenosis s/p iFR that was non-significant. Plan for medical therapy. 2. Normal left ventricular systolic function. Ejection fraction of 50%. Recommendations * Aggressive risk factor modification. * Outpatient cardiology follow up in 4 weeks. Interventional RX Recommendation: medical therapy and/or counseling Diagnostic RX Recommendation: medical therapy and/or counseling Anticoagulation: Heparin Ventriculography Ejection Fraction: 50.0 % Pressures Phase:Rest AO : 119 / 87 ( 103 ) @ 9:07:00 AM 111 / 79 ( 95 ) @ 9:10:00 AM 140 / 84 ( 109 ) @ 9:14:00 AM 139 / 82 ( 107 ) @ 9:14:00 AM LV : 147 / 9 / 17 @ 9:13:00 AM 153 / 0 / 21 @ 9:14:00 AM 152 / 0 / 24 @ 9:14:00 AM Valves Phase:DefaultPhase AV : 11.0 @ 8:38:57 AM AV Mean Gradient: 13.0 @ 8:38:57 AM 13.0 @ 8:38:57 AM Clinical Evaluation EBL: 5mL-10mL Procedural Details Pre-Procedure Time Out. Identified patient by full name and date of as verbalized by the patient/guarantor. Does the consent match the physician's order: Yes. Accurate & Complete Informed Consent: Yes. Inpatient/Outpatient History & Physical on Chart: Yes. If H&P is completed, is and addenduem needed: No; If yes, is the addendum complete: N/A. Visualize and Verify Site with Patient/Guarantor: N/A. Relevant Radiology Images available: Yes. Pre-op teaching completed and patient verbalized understanding. The risks, benefits, and alternatives of sedation and/or procedure were discussed by physician. The patient agrees to continue. Procedure started. Physician arrived. [facility] [place] Clinical Fraility Score: 3: Managing Well. Electrical Maintenance Supervisor Indications: Worsening Angina. Chest Pain Symptom Assessment: Atypical Angina. Correct patient, site and procedure confirmed by cath team. PERRLA. Strong, equal hand quality assurance supervisor bilaterally. Lungs clear x 5 lobes. IV Site on Arrival: 18 gauge in the right anticubital. IV Fluids: 0.9% NaCl at KVO. 0 mL infused prior to laboratory animal care veterinarian. Oxygen started at 2liters/min via nasal canula. right groin was prepped with chloroprep then draped in the usual sterile fashion. right radial was prepped with chloroprep then draped in the usual sterile fashion. Baseline sample Acquired. HR: 80 BPM. Physician scrubbed in. Immediate Pre-Procedure Time Out. Correct Patient: Yes; Correct Procedure: Yes; Correct Site: Yes; Correct Patient Position: Yes; Correct Supplies: Yes; Dried Flammable Prep: Yes; Blood Products Available: N/A;. Lidocaine 1% infiltrated to the right radial. Arterial access obtained. A 5 british TIG catheter in over wire. Multiple views taken of left coronary artery. Catheter removed over the exchange wire. A 5 british Angled Pig catheter in over wire. EDP Sample taken: LV 147/9,17; HR: 84 BPM; SpO2: 93%. LV gram performed in DE ANDA @ 10 mL/second for a total of 30 mL. EDP Sample taken: LV 153/-1,21; HR: 87 BPM; SpO2: 95%. Pullback taken: LV 152/-1,24; AO 140/84(109); Mean: 13mmHg, Peak to Peak: 11mmHg, SEP: 20sec/min; HR: 82 BPM; SpO2: 94%. Catheter removed over the exchange wire. A 5 british JR4 catheter in over wire. Multiple views taken of right coronary artery. Catheter removed over the exchange wire. 6 british JR 4 guide catheter was inserted over the wire. IFR guidewire was advanced through the guide catheter to lesion in the mid RCA. IFR Results: 0.96. Wire out. Guide catheter out. A TR Band was successful obtaining hemostatsis at the Right Radial artery insertion site. Vital chart was stopped. Post Procedure: Pulses reassessed and unchanged. PERRLA. Strong, equal hand quality assurance supervisor bilaterally. No VTE prophylaxis required. Medication's Wasted: Lidocaine 1% = 1 mL. Medication's Wasted: Nitro = 49.8 mg. Medication's Wasted: Other = Fentanyl 50mcg Versed 1 mg. Total IV fluids: 47.1 mL. Complications: None. Estimated blood loss: 5mL-10mL. Responsiveness - Normal response to verbal stimuli; alert and oriented, PERRLA. Airway - Unaffected, no intervention required; spontaneous ventilation. Circulation: W/N/L, pulses unchanged. Nausea/Vomiting: No. Procedure completed. Patient transferred by wheelchair to CPRU. Access Site Site: Right Radial artery Sheath Size: 6 Fr Hemostasis Method: TR Band Hemostasis Success: Successful Procedure Medications Start: 8:00 AM Stop: 8:00 AM Medication: Versed Amount: 1 mg Route: I.V. Start: 8:00 AM Stop: 8:00 AM Medication: Fentanyl Amount: 50 mcg Route: I.V. Start: 8:04 AM Stop: 8:04 AM Medication: Versed Amount: 1 mg Route: I.V. Start: 8:05 AM Stop: 8:05 AM Medication: Fentanyl Amount: 50 mcg Route: I.V. Start: 8:06 AM Stop: 8:06 AM Medication: Nitrogylcerin Amount: 200 mcg Route: I.A. Start: 8:06 AM Stop: 8:06 AM Medication: Heparin Amount: 5000 units Route: I.V. Start: 8:20 AM Stop: 8:20 AM Medication: Heparin Amount: 3000 units Route: I.V. Start: 8:22 AM Stop: 8:22 AM Medication: Versed Amount: 1 mg Route: I.V. Start: 8:22 AM Stop: 8:22 AM Medication: Fentanyl Amount: 50 mcg Route: I.V. I, the attending physician, have reviewed and verified all procedure medications. Yes, all medications given per verbal order History/Risk Factors Hypertension: Yes Dyslipidemia: No Peripheral Arterial Disease (PAD): No Myocardial Infarction (ND): No Obesity: No Renal Disease: No Tobacco Use: Former Prior Interventions PCI: Yes CABG: No Valve Surgery: No Report Signatures Finalized by Florentin Ibanez MD on 08/13/2023 12:58 PM
[2023-08-12] MEDS: diphenhydrAMINE 50 mg Capsule PO (06:30)
--- NOTE | 2023-08-12 07:33 | W.PM.OPSUD ---
Surgery/Procedure H&P Update DATE OF PROCEDURE: August 12, 2023 DATE H&P PERFORMED: 07/23/23 H&P UPDATE INFORMATION: I have reviewed H&P completed within last 30 days, I have examined patient prior to procedure and Changes to prior documentation as noted here CHANGES TO PREVIOUS DOCUMENTATION: Patient had a lexiscan that revealed possible ischemia in the LAD territory. Plan for coronary angiogram with possible percutaneous coronary intervention PREOP DIAGNOSIS: Worsening angina/abnormal stress test PRIMARY INDICATION FOR PROCEDURE: Worsening angina/abnormal stress test PLANNED PROCEDURE: Operation Date: 08/12/23 07:00 Proposed Procedures p [facility] [id number],R94.39(Left) - Florentin Ibanez M.D Possible percutaneous coronary intervention PATIENT REASSESSED PRIOR TO SEDATION, WITH NO CHANGE NOTED: Yes PHYSICAL EXAM: alert, oriented x 3, clear to auscultation bilaterally and regular rate & rhythm AIRWAY EVAL/ANESTHESIA PLAN: normal airway, ASA III, Local Anesthesia, Risks, benefits & alternatives of sedation and/or procedure discussed and Patient agrees to continue as planned ADDITIONAL INFORMATION: Moderate sedation
[2023-08-12] MEDS: acetaminophen 325 mg Tablet 650 MG PO (09:16)
--- NOTE | 2023-08-12 12:45 | PC.NURSE ---
Patients discharge paperwork was printed and new medication was transmitted to [facility] pharmacy in [place]. Patient stated at time of discharge that she would like the prescription to be sent to [facility]. I called [facility] pharmacy in [place] and asked them to transfer the prescription the [facility] pharmacy. They confirmed that they would complete the task
== END 2023-08-12 13:35 | disposition home or self-care (01) ==
LOC: ICU 13:36 → ICUOP 08-13 18:58 → ICU 08-14 08:36
PROVIDERS: PCP Internal Medicine; Visit Provider Internal Medicine
DX: I25.10 Atherosclerotic heart disease of native coronary artery without angina pectoris (principal); I10 Essential (primary) hypertension; Z87.891 Personal history of nicotine dependence; I25.2 Old myocardial infarction
CPT/HCPCS: 36415; 93458; 93571; 96361; 96365; 99152; 99153; C1769; C1887; C1894; G0378; J1644; J2250; J3010; J3490; J7030; Q0163; Q9967

== ENCOUNTER → 2023-08-20 09:54 | Outpatient (BNVA) | payer OTHER, SELFPAY | PROVIDERS: PCP Internal Medicine; Visit Provider Nurse Practitioner Family | DX: I25.10 Atherosclerotic heart disease of native coronary artery without angina pectoris (principal); Z09 Encounter for follow-up examination after completed treatment for conditions other than malignant neoplasm | CPT/HCPCS: 36415; 80048 ==